=== PATIENT | male | born 1960 | race African-American/Black ===

== ENCOUNTER 2016-10-22 22:25 | Emergency (ER) | payer MEDICARE, OTHER | END 2016-10-23 03:15 | disposition home or self-care (01) | LOC: CED 22:25 | DX: Z76.0 Encounter for issue of repeat prescription (principal); E11.9 Type 2 diabetes mellitus without complications; I10 Essential (primary) hypertension; Z79.4 Long term (current) use of insulin; Z79.899 Other long term (current) drug therapy | CPT/HCPCS: 82947; 99282 ==